=== PATIENT | male | born 1945 | race Caucasian/White ===

== ENCOUNTER 2017-02-08 09:26 | Day surgery (SDC) | payer OTHER ==
[2017-02-08] MEDS ORDERED: SIMETHICONE 40 MG/0.6 ML ML ONE (09:46)
[2017-02-08] MEDS ORDERED: MEPERIDINE HCL/PF 100 MG/ML AMP ONE (09:46)
[2017-02-08] MEDS: MIDAZOLAM HCL 5 MG/5 ML VIAL ONE ×3 (11:12→11:17)
[2017-02-08 15:40] VITALS: BP_SYST 110
== END 2017-02-08 12:55 | disposition home or self-care (01) ==
LOC: SDS 09:26 → SMU 09:32 → SDS 12:55
PROVIDERS: ATTEND Internal Medicine Gastroenterology
DX: Z09 Encounter for follow-up examination after completed treatment for conditions other than malignant neoplasm (principal); Z86.010 Personal history of colon polyps; D12.2 Benign neoplasm of ascending colon; K57.30 Diverticulosis of large intestine without perforation or abscess without bleeding; K64.8 Other hemorrhoids; F32.9 Major depressive disorder, single episode, unspecified; F41.9 Anxiety disorder, unspecified; G62.9 Polyneuropathy, unspecified; M19.90 Unspecified osteoarthritis, unspecified site; Z99.2 Dependence on renal dialysis; D64.9 Anemia, unspecified; E03.9 Hypothyroidism, unspecified; E11.22 Type 2 diabetes mellitus with diabetic chronic kidney disease; I12.9 Hypertensive chronic kidney disease with stage 1 through stage 4 chronic kidney disease, or unspecified chronic kidney disease; N18.9 Chronic kidney disease, unspecified
CPT/HCPCS: 45385; 88305; J2175; J2250; J7030; 45384